=== PATIENT | female | born 2000 | race Caucasian/White ===

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

== ENCOUNTER 2018-12-13 01:33 | Inpatient (IN) | payer OTHER ==
[2018-12-13 02:00] LABS: APPEARANCE,URINE CLEAR; BILIRUBIN,URINE NEGATIVE (NEGATIVE); COLOR,URINE STRAW; GLUCOSE, URINE NEGATIVE (NEGATIVE); KETONES,URINE NEGATIVE (NEGATIVE); LEUKOCYTE ESTERASE,URINE TRACE (NEGATIVE); NITRITE,URINE NEGATIVE (NEGATIVE); PROTEIN,URINE 100 mg/dL (NEGATIVE); URINE SPECIFIC GRAVITY 1.003; UROBILINOGEN,URINE NEGATIVE mg/dL (<2.0)
[2018-12-13 02:14] LABS: URINE AMPHETAMINES SCREEN NEGATIVE; URINE BARBITURATES SCREEN NEGATIVE; URINE BENZODIAZEPINES SCREEN NEGATIVE; URINE COCAINE SCREEN NEGATIVE; URINE MARIJUANA (THC) SCREEN NEGATIVE; URINE METHADONE SCREEN NEGATIVE; URINE PHENCYCLIDINE SCREEN NEGATIVE
[2018-12-13] MEDS ORDERED: OXYTOCIN/NORMAL SALINE 20 UNIT/1,000 ML RTUINJ ONE (02:24)
[2018-12-13] MEDS ORDERED: LIDOCAINE 1% INJ-PF (10 MG/ML) 30 ML SDV ONE (02:24)
[2018-12-13] MEDS ORDERED: MISOPROSTOL 0.2 MG TABLET ONE (02:24)
[2018-12-13] MEDS ORDERED: OXYTOCIN 10 UNIT/ML VIAL ONE ×2 (02:24→02:25)
[2018-12-13] MEDS: RINGERS SOLUTION,LACTATED 1,000 ML IV PRN ×3 (02:33→04:08)
--- NOTE | 2018-12-13 02:42 | Admission Physical ---
Datetime Report Generated by CPN: 12/13/2018 02:42 CURRENT ADMISSION Chief Complaint: Uterine Contractions Indication for Induction: Not Applicable Admit Impression : Term, Intrauterine Admit Plan: Initiate Labor Protocol ALLERGIES Medication Allergies: No Known Allergies (12/13/2018) OBSTETRICAL HISTORY EDC: 12/12/2018 00:00 : 2 Para: 1 Livin Gestational Diabetes: No Rh Sensitization: No Incompetent Cervix: No FERNANDO: No Infertility: No ART Treatment: No Uterine Anomaly: No IUGR: No Hx Previous C/S: No Macrosomia: No Hx Loss/Stillborn: No PIH: No Hx : No Placenta Previa/Abruption: No Depression/PP Depression: No PTL/PROM: No Post Hemorrhage: No Current Procedures: Ultrasound Obstetrical History Comments: 2016 Term babygirl 7 lbs 2 oz G2- current SEE RECORDS Alcohol: No Marijuana : No Cocaine: No Other Illicit Drugs: No Cigarettes: Never Smoker. 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 Heart Disease: No Hosp/Surgery: Yes Autoimmune Disorder: No Anesthetic Complications: No Kidney Disease: No Abnormal Pap Smear: No Neuro/Epilepsy: No Psychiatric Disorders: No Other Medical Diseases: No Hepatitis/Liver Disease: No Significant Family History: No Varicosities/Phlebitis: No Trauma/Violence : No Thyroid Dysfunction: No Medical History Comments: childbirthx 1 INFECTIOUS HISTORY Gonorrhea: No Genital Herpes: No Chlamydia: No Tuberculosis: No Syphilis: No Hepatitis: No HIV/AIDS Exposure: No Rash or Viral Illness: No HPV: No PHYSICAL EXAM General: Normal HEENT: Normal Neurologic: Normal Thyroid: Normal Heart: Normal Lungs: Normal Breast: Deferred Back: Normal Abdomen: Normal Genitourinary Exam: Normal Extremities: Normal DTRs: Normal Pelvic Type: Adequate FETUS A EGA: 40.1 PLANS FOR LABOR AND DELIVERY Labor and Delivery: None Pain Management: Medications; Epidural Feeding Preference: Formula Circumcision: Yes INFORMED CONSENT Signature: with User ID: [email or web address]
[2018-12-13 02:54] LABS: HEMATOCRIT 35.2 % (36.0-47.0); HEMOGLOBIN 11.9 g/dL (12.0-15.5); LYMPHOCYTES % (AUTO) 31.6 % (13-45); MEAN CORPUSCULAR HEMOGLOBIN 28.6 pg (27.0-33.4); MEAN CORPUSCULAR HGB CONC 33.9 g/dL (32.0-36.0); MEAN CORPUSCULAR VOLUME 84 fl (80-97); MONOCYTES % (AUTO) 9.7 % (3-13); PLATELET COUNT 118 10^3/uL (150-450); RED BLOOD COUNT 4.18 10^6/uL (3.72-5.28); RED CELL DISTRIBUTION WIDTH 15.1 % (11.5-14.0); SEGMENTED NEUTROPHILS % (AUTO) 57.9 % (42-78); WHITE BLOOD COUNT 7.9 10^3/uL (4.0-10.5)
[2018-12-13 02:55] LABS: ABSOLUTE LYMPHOCYTES (AUTO) 2.5 10^3/uL (0.5-4.7); ABSOLUTE MONOCYTES (AUTO) 0.8 10^3/uL (0.1-1.4); ABSOLUTE NEUT (AUTO) 4.6 10^3/uL (1.7-8.2); BASOPHILS % (AUTO) 0.4 % (0-2); EOSINOPHILS % (AUTO) 0.4 % (0-6); TOTAL CELLS COUNTED % (AUTO) 100 %
[2018-12-13] MEDS ORDERED: OXYTOCIN/NORMAL SALINE 20 UNIT/1,000 ML RTUINJ IV PRN ×2 (02:57→05:18)
[2018-12-13] MEDS ORDERED: FENTANYL/BUPIVACAINE/NS/PF 300 MCG/150 ML RTUINJ EPI ONE (03:27)
[2018-12-13] MEDS ORDERED: BUPIVACAINE HCL 0.25 % INJ/PF (2.5 MG/1 ML) 30 ML VIAL ONE (03:27)
[2018-12-13] MEDS ORDERED: EPHEDRINE SULFATE INJ 50 MG/1 ML AMPULE ONE (03:27)
[2018-12-13] MEDS ORDERED: LIDOCAINE 1.5%/EPINEPHRINE INJ-PF 30 ML SDV ONE (03:32)
[2018-12-13] MEDS ORDERED: MEASLES,MUMPS&RUBELLA VACC/PF 0.5 ML VIAL SUBCUT PRN (05:18)
[2018-12-13] MEDS ORDERED: ZOLPIDEM TARTRATE 5 MG TABLET PO PRN (05:18)
[2018-12-13] MEDS ORDERED: GLYCERIN/WITCH HAZEL LEAF 1 EACH MED..PAD TP PRN (05:18)
[2018-12-13] MEDS ORDERED: PROMETHAZINE HCL INJ 25 MG/1 ML VIAL IV PRN (05:18)
[2018-12-13] MEDS ORDERED: PROMETHAZINE HCL 25 MG SUPP.RECT PR PRN (05:18)
[2018-12-13] MEDS ORDERED: DIBUCAINE 1% OINTMENT 28 GM TP PRN (05:18)
[2018-12-13] MEDS ORDERED: MAGNESIUM HYDROXIDE SUSP 30 ML UDCUP PO PRN (05:18)
[2018-12-13] MEDS ORDERED: DIPHENHYDRAMINE HCL 25 MG CAPSULE PO PRN (05:18)
[2018-12-13] MEDS ORDERED: BENZOCAINE/MENTHOL AEROSOL SPRAY 56 ML TOP PRN (05:18)
[2018-12-13] MEDS ORDERED: ACETAMINOPHEN WITH CODEINE #3 TABLET PO PRN ×2 (05:18)
[2018-12-13] MEDS ORDERED: PSEUDOEPHEDRINE HCL 30 MG TABLET PO PRN (05:18)
[2018-12-13] MEDS ORDERED: PROMETHAZINE HCL 25 MG TABLET PO PRN (05:18)
[2018-12-13] MEDS ORDERED: DIPH/PERTUSS(ACELL)/TETANUS VAC/PF 0.5 ML SYR (>=10YO) IM PRN (05:18)
[2018-12-13] MEDS ORDERED: NA PHOS,M-B/NA PHOS,DI-BA (ADULT) 133 ML ENEMA PR PRN (05:18)
[2018-12-13] MEDS ORDERED: ACETAMINOPHEN 650 MG SUPP.RECT PR PRN (05:18)
--- NOTE | 2018-12-13 05:20 | PDOC DELIVERY SUMMARY ---
Delivery Summary - Maternal Ruptured Membranes: AROM Fluids: Clear - Delivery Labor: Augmentation Presentation: Vertex Uterine Contraction Monitoring: External Support Person Present: Yes Placenta: Within Normal Limits Number of Vessels (Cord): 3 Nuchal Cord: Yes
[2018-12-13] MEDS ORDERED: IBUPROFEN 800 MG TABLET ONE (07:05)
[2018-12-13] MEDS: IBUPROFEN 800 MG TABLET PO SCH ×3 (07:07→22:04)
[2018-12-13] MEDS: FERROUS SULFATE 325 MG TABLET PO SCH ×2 (10:07→18:01)
[2018-12-13] MEDS: SENNOSIDES/DOCUSATE 8.6-50 MG 1 EACH TABLET PO SCH (10:07)
[2018-12-13] MEDS: DOCUSATE SODIUM 100 MG CAPSULE PO SCH ×2 (10:07→18:01)
[2018-12-13] MEDS: PRENATAL VITAMIN W DHA CAPSULE PO SCH (10:07)
[2018-12-13] MEDS: FAMOTIDINE 20 MG TABLET PO SCH ×2 (10:07→22:04)
[2018-12-13 20:37] VITALS: BP 134/83
[2018-12-14] MEDS: IBUPROFEN 800 MG TABLET PO SCH (05:49)
[2018-12-14 07:32] LABS: HEMATOCRIT 36.5 % (36.0-47.0); HEMOGLOBIN 12.2 g/dL (12.0-15.5); MEAN CORPUSCULAR HEMOGLOBIN 28.2 pg (27.0-33.4); MEAN CORPUSCULAR HGB CONC 33.5 g/dL (32.0-36.0); MEAN CORPUSCULAR VOLUME 84 fl (80-97); PLATELET COUNT 106 10^3/uL (150-450); RED BLOOD COUNT 4.35 10^6/uL (3.72-5.28); RED CELL DISTRIBUTION WIDTH 15.3 % (11.5-14.0); WHITE BLOOD COUNT 7.7 10^3/uL (4.0-10.5)
[2018-12-14] MEDS: FERROUS SULFATE 325 MG TABLET PO SCH (09:48)
[2018-12-14] MEDS: PRENATAL VITAMIN W DHA CAPSULE PO SCH (09:48)
[2018-12-14] MEDS: DOCUSATE SODIUM 100 MG CAPSULE PO SCH (09:48)
[2018-12-14] MEDS: FAMOTIDINE 20 MG TABLET PO SCH (09:48)
[2018-12-14] MEDS: SENNOSIDES/DOCUSATE 8.6-50 MG 1 EACH TABLET PO SCH (09:48)
--- NOTE | 2018-12-14 09:58 | PDOC DISCHARGE SUMMARY ---
Final Diagnosis Discharge Date: 12/14/18 - PP day #1, pt desires to go home this afternoon if possible. , no complaints. Discharge Data - Discharge Medication Prescriptions: Ibuprofen [Motrin 800 mg Tablet] 800 mg PO Q8 #60 tablet Home Medications: 95/Iron Fum/Folic/Dha [ + Dha Combo Pack] 1 each PO DAILY 10/16/17 Ibuprofen [Motrin 800 mg Tablet] 800 mg PO Q8 #60 tablet 12/14/18 Reason(s) for Admission: Onset of Labor Procedures: Ultrasound Intrapartum Procedure(s): Spontaneous Vaginal Delivery - Diagnosis Test Laboratory: Temp Pulse Resp BP Pulse Ox 98.5 F 60 18 134/83 H 99 12/13/18 20:25 12/13/18 20:25 12/13/18 20:25 12/13/18 20:25 12/13/18 20:25 12/13/18 12/13/18 12/14/18 01:45 02:34 07:13 RBC 4.18 4.35 Hgb 11.9 L 12.2 Hct 35.2 L 36.5 Urine Opiates Screen NEGATIVE - Discharge information/Instructions Discharge Activity: Activity As Tolerated, No Lifting Over 10 Pounds, Pelvic Rest Discharge Diet: As Tolerated, Regular Disposition: HOME, SELF-CARE Follow up with: [facility] in: 4, Weeks
== END 2018-12-14 13:40 | disposition home or self-care (01) | DRG 807 ==
LOC: LC 01:33 → LR 02:20 → 2S 07:54
PROVIDERS: ADMIT Obstetrics & Gynecology Gynecology; ATTEND Obstetrics & Gynecology Gynecology
PROC: 10E0XZZ Delivery of Products of Conception, External Approach (ICD-10-PCS; principal; 2018-12-13)
DX: O69.81X0 Labor and delivery complicated by cord around neck, without compression, not applicable or unspecified (principal); Z37.0 Single live birth; Z3A.40 40 weeks gestation of pregnancy
CPT/HCPCS: 36415; 80307; 81005; 84112; 85025; 85027; 86592; 86850; 86900; 86901; 94760; J2590; J3010; J3490